=== PATIENT | male | born 1980 | race Caucasian/White ===

== ENCOUNTER 2018-01-20 16:26 | Emergency (ER) | payer SELFPAY ==
[~2018-01-20] VITALS: Ht 160 cm; Wt 59.0 kg
[2018-01-20] MEDS ORDERED: ONDANSETRON 4 MG TAB.RAPDIS ONE (16:46)
[2018-01-20] MEDS ORDERED: ACETAMINOPHEN ES 500 MG TABLET ONE (16:46)
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
[2018-01-20] MEDS ORDERED: ACETAMINOPHEN 325 MG TABLET PO ONE (17:00)
[2018-01-20] MEDS ORDERED: ONDANSETRON 4 MG TAB.RAPDIS SL ONE (17:00)
--- NOTE | 2018-01-20 18:46 | NUR ---
Patient is resting comfortably in bed with eyes closed. Easily aroused. VSS
--- NOTE | 2018-01-20 19:05 | NUR ---
REPORT REC'D FROM JIN BRYANT FOR RAFAELA.
--- NOTE | 2018-01-20 21:24 | NUR ---
PT IS AWAKE AND SITTING UP IN BED. PT IS [place] SPEAKING. WILL CONTINUE TO MONITOR THE PT.
--- NOTE | 2018-01-20 21:36 | NUR ---
Patient given written and verbal discharge instructions. Patient verbalizes understanding of instructions. Patient is ambulatory with steady gait. Refuses offer of jail placement. Patient given list of available shelters in surrounding area.
[2018-01-20 21:37] VITALS: BP 115/80
== END 2018-01-20 21:38 | disposition home or self-care (01) ==
LOC: ER 16:31
DX: G44.309 Post-traumatic headache, unspecified, not intractable (principal); F10.129 Alcohol abuse with intoxication, unspecified; R11.2 Nausea with vomiting, unspecified
CPT/HCPCS: 70450-TC; 82962-TC; A4606; Q0162; Z7610